=== PATIENT | female | born 1955 | race Caucasian/White ===

== ENCOUNTER → 2016-09-24 | Outpatient (CLI) | payer BC ==
[2015-01-12 18:32] VITALS: BP 111/66
--- NOTE | 2016-09-24 13:56 | KCIC ---
MRI cervical spine without contrast Indication: Cervical radiculopathy. The patient complains of pain, numbness and tingling to the left upper extremity. Multiplanar multi sequence imaging of the cervical spine was performed without contrast. No prior studies are available for comparison. Curvature and alignment of the cervical spine is normal. The vertebral body marrow signal is normal. No geographic marrow lesion is detected. There is generalized disc desiccation and degenerative change, greatest C5-6 and C6-7 levels where there is also moderate disc space narrowing and endplate osteophyte changes. The cervical spinal cord demonstrates homogeneous signal intensity and normal morphology. C2-3: No central canal or neural foraminal stenosis is detected. C3-4: There is a wide-based disc bulge right paramidline location, indenting the ventral thecal sac. This does narrow the right lateral recess. No significant neural foraminal or central canal narrowing is seen. C4-5: No significant central canal or neural foraminal narrowing is seen. C5-6: Endplate osteophyte changes and uncovertebral joint degenerative change is seen indenting the ventral thecal sac. There is mild neural foraminal narrowing bilaterally. Central canal is patent. C6-7: Unremarkable. C7-T1: There is a small wide-based midline disc bulge indenting the ventral thecal sac but no central canal or neural foraminal narrowing is detected. The paraspinous tissues are unremarkable. Impression: Multilevel cervical degenerative disc disease with multilevel neural foraminal and lateral recess narrowing described level by level above. No central canal stenosis is detected. Electronically signed by: Eduardo Ny MD (Sep 24, 2016 13:55:18)
== END | disposition home or self-care (01) ==
LOC: KCIC MRI 12:56
PROVIDERS: ATTEND Family Medicine
DX: M50.122 Cervical disc disorder at C5-C6 level with radiculopathy (principal); M48.02 Spinal stenosis, cervical region
CPT/HCPCS: 72141